=== PATIENT | male | born 1995 | race Caucasian/White ===

== ENCOUNTER 2016-02-25 09:16 | Emergency (ER) | payer OTHER ==
[2016-02-25 09:16] VITALS: BP 148/86; PULSE 111; RESP 17; O2SAT 100
--- NOTE | 2016-02-25 09:53 | ED.REPORT ---
HPI-Altered Mental Status Date of Service Feb 25, 2016 ED Provider: Gino Bridges DO Patient is as 20 year old male who is a resident at [facility] for hx of autism, bipolar d/o and schizophrenia presenting to the ER with altered mental status. Pt arrives via medics in 4 point restraints, received multiple doses of Ketamine and Versed GLOST KILN PLACER for agitation, moaning and grunting. Patient is homeless and has been admitted three times in the last year, at time lengths of 18 days, 38 days, and most recently, 2 months. His hat marker reports that his current behavior is unusual. His medication regimen has been altered over the past year, with increased dosages that have negatively altered the patient's persona. Patient is usually easy going, follows direction, has conversations, and maintains a stable baseline. Recently patient has been more aggressive but not violent, doesn't follow directions, more unpredictable, and has trouble with urination. Patient is now experiencing urinary retention or incontinence, has been hearing voices, and frequently emits a buzzing noise. Per patient's hat marker, pt has not been vomiting. Patient's mother is also psych patient in and out of [place], is homeless, and has recently refused to care for patient. From paperwork in the room the patient's [place] level was up. Nursing Notes Stated Complaint: ALTERED MENTAL STATUS Chief Complaint: Psychiatric Complaint Nursing Notes Reviewed: Yes Allergies: Coded Allergies: orange flavor (Verified Allergy, Severe, 02/25/16) diphenhydramine (Verified Adverse Reaction, Severe, paradoxical effect, 02/25/16) haloperidol (Verified Adverse Reaction, Mild, drooling, 02/25/16) General Time Seen by MD: 09:37 Chief Complaint Not acting right Hx Obtained From: Director Of Pupil Personnel Program Unable to Obtain Hx: Patient condition Arrived By: Ambulance Sudden in Onset?: Yes Onset Occurred: More than a week ago... Symptom Duration: Since onset Progression since Onset: Gradually worsening Past Medical History Past Medical History autism, bipolar, schizophrenia Smoking History Never Smoker Social History Alcohol Use: Denies alcohol use Drug Use: Denies drug use Other Social History: Poor social support Ambulatory Status Independent Review of Systems Unable to Obtain ROS Patient condition Basic Review of Systems ENT: Hearing NL, No pain, No nasal congestion, No pharyngeal pain : No dysuria, No frequency Musculoskeletal: No extremity swelling, No extremity pain, Full range of motion , Joints NL Hematologic: No bleeding, No bruising Allergy / Immune: No allergy Psychiatric: Reports: Change mental status (per hat marker) Physical Exam Initial Vital Signs Vital Signs (First) Date Time Temp Pulse Resp B/P Pulse Ox O2 Delivery O2 Flow Rate FiO2 02/25/16 09:16 37.4 111 17 148/86 100 Room Air Initial VS: Reviewed ENT: Mucous membranes moist Abdomen / GI: Soft, Non-tender, No guarding, No rebound, No distention Extremities: Vascular intact, Neuro intact Skin: Warm, Dry, No cyanosis General/Constitutional: Well appearing, Well developed Head / Eyes: Atraumatic, Normocephalic, PERRL, EOMI Neck: Atraumatic, Supple, Non-tender Respiratory / Chest: Atraumatic, Breath sounds NL, Breath sounds = bilat Cardiovascular: Heart rate NL, Regular rhythm, Heart sounds NL Mental Status: Positive: Responds to verbal stim non-sensical speech following commands moving all 4 extremities Interpretation & Diagnostics Lab Results Interpretation Result Diagram: 02/25/16 0930 02/25/16 0930 Test 02/25/16 09:30 02/25/16 09:31 02/25/16 09:41 02/25/16 13:13 White Blood Count 9.6th/mm3 (3.8-10.1) Red Blood Count 4.56mil/mm3 (4.40-5.80) Hemoglobin 13.5g/dL (13.8-17.2) Hematocrit 41.2% (41.0-50.0) Mean Corpuscular Volume 90.4fL (81-100) Mean Corpuscular Hemoglobin 29.6pg (27.0-35.0) Mean Corpuscular Hemoglobin Concent 32.8% (32.0-37.0) Red Cell Distribution Width 14.2% (12.3-15.4) Platelet Count 290bil/L (150-400) Neutrophils (%) (Auto) 60.5% (40-74) Lymphocytes (%) (Auto) 30.7% (14-46) Monocytes (%) (Auto) 5.9% (4-12) Eosinophils (%) (Auto) 2.6% (0-5) Basophils (%) (Auto) 0.2% (0-3) Sodium Level 139mEq/L (134-144) Potassium Level 4.8mEq/L (3.5-5.2) Chloride Level 100mEq/L (97-108) Carbon Dioxide Level 25mmol/L (18-29) Blood Urea Nitrogen 11mg/dL (6-20) Creatinine 0.73mg/dL (0.76-1.27) Estimat Glomerular Filtration Rate 144mL/min (>59) Glucose Level 110mg/dL (60-99) Calcium Level 9.6mg/dL (8.5-10.1) Magnesium Level 2.3mg/dL (1.6-2.6) Total Bilirubin 0.6mg/dL (0.0-1.2) Aspartate Amino Transf (AST/SGOT) 33U/L (0-50) Alanine Aminotransferase (ALT/SGPT) 41U/L (0-44) Alkaline Phosphatase 92U/L (25-150) Ammonia 30ug/dL (18-53) Total Protein 7.7g/dL (6.4-8.4) Albumin 4.8g/dL (3.4-5.0) Salicylates Level 3.0ug/mL (30-250) Acetaminophen Level 15.0ug/mL Rx (10-25) Alcohol, Quantitative < 10mg/dL (0-10) Hold Purple Top Tube Received (Received) Hold Blue Top Tube Received (Received) Hold Red Top Tube Received (Received) Hold [place] Top Tube Received (Received) Urine Color Yellow (YELLOW) Urine Appearance Clear (CLEAR,HAZY) Urine pH 8.5 (5.0-8.0) Urine Specific [place] 1.020 (1.003-1.035) Urine Protein Negativemg/dL (NEG,TRACE) Urine Glucose (UA) Negativemg/dL (NEGATIVE) Urine Ketones Negativemg/dL (NEGATIVE) Urine Occult Blood Negative (NEGATIVE) Urine Nitrite Negative (NEGATIVE) Urine Bilirubin Negative (NEGATIVE) Urine Urobilinogen Normalmg/dL (NORMAL) Urine Leukocyte Esterase Negative (NEGATIVE) Urine RBC 0-2/hpf (0-2) Urine WBC 0-5/hpf (0-5) Urine Epithelial Cells Few/hpf (NONE-MOD) Urine Crystals None seen (NONE SEEN) Urine Bacteria Few/hpf (NONE-FEW) Urine Hyaline Casts None/lpf (NONE) Urine Granular Casts None seen (NONE SEEN) Urine Waxy Casts None seen (NONE SEEN) Urine Red Blood Cell Casts None seen (NONE SEEN) Urine White Blood Cell Casts None seen (NONE SEEN) Urine Mucus Present (None Seen) Urine Trichomonas None seen (NONE SEEN) Urine Yeast None (NONE SEEN) Urinalysis Comment None Urine Culture Reflexed Not indicated Valproic Acid (Depakene) Level < 3ug/mL (50-125) [place] Level 0.4mEq/L (0.5-1.5) ECG Interpretation ECG Interpretation: 1028 rate 95 sinus rhythm repolarization Time: 11:45 Interpreted by: ED physician X-Ray Chest Interpretation Chest Xray Interpretation: IMPRESSION: Normal AP supine chest. Dictated by: Haroldo Pro M.D. on 02/25/2016 at 11:11 Approved by: Haroldo Pro M.D. on 02/25/2016 at 11:11 View: Portable Interpretation / Wet Read by: Interpret - Radiologist CT Head Interpretation IMPRESSION: There is no acute intracranial abnormality. Dictated by: Haroldo Pro M.D. on 02/25/2016 at 12:30 Study: Head CT no contrast Interpretation / Wet Read by: Interpret - Radiologist, Discussed w radiologist CT Chest Interpretation THERE WAS NO CHEST CT TAKEN, [facility] WILL NOT ALLOW THIS TO BE TAKEN OFF OF THE CHART. Re-Eval/Medical Decision Med Decision/Clinical Course No evidence of hydrocephalus on head CT nor mass effect, stroke, or obvious hemorrhage. Clinically symptomatology does not seem consistent with encephalitis or meningitis and no LP was performed. Other laboratory studies are unremarkable. It seems that for any obvious reversible medical causes this is an identifiable and the patient is deemed stable to return to the care of the psychiatric facility which he came from. Source of Hx: Old records, EMS, Director Of Pupil Personnel Program, Coating Machine Operator Helper Re-Evaluation/Progress #1: Time of Eval: 09:16 Re-Evaluation/Progress Note: Face to face evaluation performed. Patient was brought in with restraints and will remain in restraints at this time. Re-Evaluation/Progress #2: Time of Eval: 10:58 Re-Evaluation/Progress Note: Pt rechecked. Pt's psychiatrist arrived at hospital. Discussed the patient's case with her. Informed pt of diagnosis and plan for treatment. Re-Evaluation/Progress #3: Time of Eval: 12:42 Re-Evaluation/Progress Note: Pt rechecked. Discussed negative head CT and plan for discharge with the patient's hat marker. All questions were addressed. Counseled Regarding: Diagnosis, Lab results, Need for follow-up, When/why to return to ED Patient Discharge & Departure Impression: Primary Impression: Altered mental status Altered mental status type: unspecified Qualified Code: R41.82 - Altered mental status, unspecified Disposition: Home Discharge Condition All VS Reviewed: Yes Condition: Stable Additional Instructions: Thank you for seeking care at emergency room. No identifiable life-threatening cause of these symptoms can be found. Follow- up with psychiatry and your regular doctor as planned. You are cleared to go back to the psychiatric facility. Return to ER as needed for worsening symptoms. Thank you for letting us partake in your care today. Scribe Attestation Portion of this note were transcribed by Claire Hernandez and Deep Dennis. I, Dr. Andrew Morales, personally performed the history, physcial exam, and medical decision- making: I reviewed and confirmed the accuracy for the information in the transcribed note. Signed by: delaney Díaz, 02/22/16 Gino Freeman DO Feb 25, 2016 09:53 DEEP DENNIS Feb 25, 2016 10:11 Claire Hernandez Feb 25, 2016 11:53
[2016-02-25] MEDS ORDERED: 0.9% Sodium Chloride 1,000 ML IV ONE ×2 (09:58→11:55)
[2016-02-25 10:08] LABS: APPEARANCE,URINE CLEAR (CLEAR,HAZY); COLOR,URINE YELLOW (YELLOW); PH,URINE 8.5 (5.0-8.0)
[2016-02-25 10:09] LABS: OCCULT BLOOD,URINE NEGATIVE (NEGATIVE); UROBILINOGEN,URINE NORMAL (NORMAL)
[2016-02-25 10:19] LABS: BASOPHILS % (AUTO) 0.2 % (0-3); EOSINOPHILS % (AUTO) 2.6 % (0-5); MONOCYTES % (AUTO) 5.9 % (4-12); Mean Corpuscular Hemoglobin 29.6 pg (27.0-35.0); Mean Corpuscular Volume 90.4 fL (81-100); NEUTROPHILS % (AUTO) 60.5 % (40-74); Platelet Count 290 bil/L (150-400)
[2016-02-25 10:27] VITALS: BP 129/73; PULSE 96; RESP 18; O2SAT 100
[2016-02-25 10:33] LABS: Magnesium 2.3 mg/dL (1.6-2.6)
[2016-02-25 11:06] LABS: Ammonia 30 ug/dL (18-53)
--- NOTE | 2016-02-25 11:13 | DRSVH ---
PROCEDURE: X-RAY CHEST ONE VIEW, PORTABLE ([id number]) INDICATIONS: Altered Mental Status TECHNIQUE: One view of the chest was acquired. COMPARISON: None. FINDINGS: Surgical changes and devices: classroom monitor leads are seen over the chest. Lungs and pleura: No pleural effusions or pneumothorax. Lungs are clear. Mediastinum: Mediastinal contours appear normal. Heart size is normal. Bones and chest wall: No suspicious bony lesions. Overlying soft tissues appear unremarkable. IMPRESSION: Normal AP supine chest. Dictated by: Haroldo Pro M.D. on 02/25/2016 at 11:11 Approved by: Haroldo Pro M.D. on 02/25/2016 at 11:11
[2016-02-25 12:25] VITALS: BP 123/56; PULSE 89; RESP 15; O2SAT 99
--- NOTE | 2016-02-25 12:32 | DRSVH ---
PROCEDURE: CT BRAIN WITHOUT CONTRAST ([id number]) INDICATIONS: altered mental status TECHNIQUE: Noncontrast 4.5 mm thick angled axial sections acquired from the foramen magnum to the vertex, with c oronal reformats. COMPARISON: None. FINDINGS: Image quality: Excellent. CSF spaces: Basal cisterns are patent. No extra-axial fluid collections. Ventricles are normal in size and shape. Brain: No midline shift. No intracranial masses or hemorrhage. Metcalf-white matter interface is norm al. Skull and face: Calvarium and visualized facial bones are intact, without suspicious lesions. Sinuses: Visualized sinuses show scattered mucosal thickening of mild to moderate amount as well as an air-fluid level in the right maxillary sinus suggesting an acute sinusitis. IMPRESSION: There is no acute intracranial abnormality. Dictated by: Haroldo Pro M.D. on 02/25/2016 at 12:30 Approved by: Haroldo Pro M.D. on 02/25/2016 at 12:30
[2016-02-25 13:47] LABS: Valproic Acid < 3 ug/mL (50-125)
[2016-02-25 14:02] VITALS: BP 140/73; PULSE 96; RESP 17; O2SAT 100
[2016-02-25 14:48] VITALS: BP 129/65; PULSE 94; RESP 14; O2SAT 96
[2016-02-26] MEDS ORDERED: TEMA15CA3 PO (21:55)
[2016-02-26] MEDS ORDERED: GUAN1TAB PO (21:55)
[2016-02-26] MEDS ORDERED: ARIP5TAB5 PO (21:55)
[2016-02-26] MEDS ORDERED: ACET325T51 PO (21:55)
[2016-02-26] MEDS ORDERED: KLO1T PO (21:55)
[2016-02-26] MEDS ORDERED: ZIPR40CA2 PO (21:55)
[2016-02-26] MEDS ORDERED: MAGN400O4 PO (21:55)
[2016-02-26] MEDS ORDERED: ZIPR60CA2 PO (21:55)
[2016-02-26] MEDS ORDERED: LITHIUM PO ×2 (21:55)
== END 2016-02-25 14:45 | disposition home or self-care (01) ==
LOC: SED 09:30
DX: R41.82 Altered mental status, unspecified (principal); Z88.8 Allergy status to other drugs, medicaments and biological substances
CPT/HCPCS: 36415; 51702; 70450; 71010; 80053; 80164; 80178; 81000; 82140; 83735; 85025; 93005; 96361; 96374; 99285; G0480; J2250; J7030

== ENCOUNTER 2016-02-26 13:19 | Inpatient (IN) | payer OTHER, MEDICAID ==
[~2016-02-26] VITALS: Ht 180.3 cm; Wt 81.1 kg
[2016-02-26 13:30] VITALS: BP 134/78; PULSE 98; RESP 20; O2SAT 100
--- NOTE | 2016-02-26 16:41 | ED.REPORT ---
HPI-General Illness Date of Service Feb 26, 2016 ED Provider: Natali Lozano MD A 20 year old male with a history of autism, bipolar disorder, and schizophrenia presents to the ED via EMS from [facility] with hypertension and behavioral status changes onset today. This morning his caretakers documented in the patient an episode of rigid, violent shaking with a BP of 200/ 120 and a heart rate of 120. His vital signs had returned to normal when the medics arrived. His caretakers deny fever. The patient's Geodon dosage was recently increased. He was in the ED yesterday for altered mental status and was discharged after a full work-up. Nursing Notes Stated Complaint: HIGH BLOOD PRESSURE Chief Complaint: General Complaint Nursing Notes Reviewed: Yes Allergies: Coded Allergies: orange flavor (Verified Allergy, Severe, 02/26/16) diphenhydramine (Verified Adverse Reaction, Severe, paradoxical effect, 02/26/16) haloperidol (Verified Adverse Reaction, Mild, drooling, 02/26/16) Scheduled ([[place] Oral solu]) 300 MG PO DAILY ([[place] oral ivon]) 600 MG PO HS Aripiprazole (Abilify) 5 Mg Tablet 7.5 MG PO DAILY Clonazepam (Clonazepam) 1 Mg Tablet 1 MG PO TID Guanfacine (Guanfacine) 1 Mg Tablet 1 MG PO BID Ziprasidone (Geodon) 40 Mg Capsule 40 MG PO DAILY Ziprasidone (Geodon) 60 Mg Capsule 60 MG PO HS Scheduled PRN Acetaminophen (Acetaminophen) 325 Mg Tablet 650 MG PO Q4H PRN PRN For Fever Magnesium Hydroxide (Milk of Magnesia) 400 Mg/5 Ml Oral.susp 400 MG PO PRN For Dyspepsia or Heartburn Temazepam (Restoril) 15 Mg Capsule 15 MG PO HS PRN PRN For Insomnia General Time Seen by MD: 16:38 Chief Complaint Other (Hypertension) Hx Obtained From: Courtroom Clerk Unable to Obtain Hx: Mental status Arrived By: Ambulance Sudden in Onset?: Yes Onset Occurred: 9 - 12 hours ago Symptom Duration: Intermittent Associated with: Denies: Fever Pertinent Negative: Relieved by nothing Context Related History: Reports Psychiatric history, Reports Recent medication Recent Healthcare: Recent doctor visit Similar Sx Previous: No Past Medical History Past Medical History Autism Bipolar disorder Schizophrenia Past Surgical History None reported Smoking History Never Smoker Social History Alcohol Use: Denies alcohol use Drug Use: Denies drug use Other Social History: Poor social support Ambulatory Status Independent Review of Systems Unable to Obtain ROS Patient condition, Mental status Physical Exam Vital Signs Vital Signs Date Time Temp Pulse Resp B/P Pulse Ox O2 Delivery O2 Flow Rate FiO2 02/26/16 18:59 37.8 02/26/16 18:53 110 16 131/74 98 Room Air 02/26/16 16:51 56 18 154/89 97 Room Air 02/26/16 13:30 36.5 98 20 134/78 100 Room Air Initial VS: Reviewed Head / Eyes: Atraumatic, Normocephalic, PERRL ENT: Mucous membranes moist, Conjunctiva normal, No scleral icterus Neck: Supple, Non-tender, Full range of motion Respiratory: Breath sounds normal, Clear to auscultation, No respiratory distress Cardiovascular: Regular rate & rhythm, Heart sounds normal Abdomen / GI: Soft Extremities: No swelling Skin: Warm, Dry, No cyanosis General/Constitutional: Awake On exam patient is sitting on the toilet, facing the wall He is nonverbal and noncommunicative Poor eye contact Movement Abnormality: Positive: Tremor (Bilateral hands) NEUROLOGIC: Nonverbal and noncommunicative Interpretation & Diagnostics Lab Results Interpretation Test 02/26/16 14:00 Hold Purple Top Tube Received (Received) Hold Blue Top Tube Received (Received) Total Creatine Kinase 398U/L (21-232) Hold Red Top Tube Received (Received) Hold [place] Top Tube Received (Received) ECG Interpretation ECG Interpretation: Sinus tachycardia rate 108 Early repol pattern Similar to 02/25/16 Time: 19:26 Interpreted by: ED physician Re-Eval/Medical Decision Med Decision/Clinical Course Neuroleptic Malignant Syndrome Diagnostic Criteria: Exposure to dopamine antagonist, or dopamine agonist withdrawal, within past 72 hours - 20 PTS (Geodon) Hyperthermia - NO PTS Rigidity - 17 PTS (Tremor) Mental status alteration - 13 PTS Creatine kinase elevation, at least 4x upper limit of normal - 10 PTS (398) Sympathetic nervous system lability - 10 PTS (Blood pressure elevation to 154/89 , blood pressure fluctuation from 129/65 yesterday, and urinary incontinence yesterday) Hypermetabolism - NO PTS Negative work-up for infectious, toxic, metabolic, or neurological causes - 7 PTS Total: 77/100 At this time, best diagnosis is developing neuroleptic malignant syndrome due to recent increases in Geodon recommendations from UP to DATE are admission, supportive care, witholding of neuroleptics Source of Hx: Old records Consultation : Referral / Consult Name: Deejay Pruitt MD Call Returned at: 19:10 Land Management Supervisor: Agrees with eval, Agrees with plan, Accepts admit Counseled Regarding: Diagnosis, Lab results, Need for admission Discharge & Departure Primary Impression: Neuroleptic malignant syndrome Disposition: ADMITTED TO HOSPITAL Discharge Condition All VS Reviewed: Yes Condition: Stable Referrals: Sulma Ambriz MD (PCP) Cristiibe Attestation Portions of this note were transcribed by Estrellita Melo. I, Dr. Lozano, personally performed the history, physical exam, and medical decision-making; I reviewed and confirmed the accuracy of the information in the transcribed note. Signed by: Amador Marie, 02/26/2016, 20:17 copies to: Sulma Ambriz MD, Shawna L MD Feb 26, 2016 16:41 ESTRELLITA MELO Feb 26, 2016 17:08
[2016-02-26 16:51] VITALS: BP 154/89; PULSE 56; RESP 18; O2SAT 97
[2016-02-26 18:53] VITALS: BP 131/74; PULSE 110; RESP 16; O2SAT 98
[2016-02-26] MEDS ORDERED: Polyethylene Glycol (PEG) 17 Gm Powder PO PRN (19:30)
[2016-02-26] MEDS ORDERED: Alum-Mag Hydrox-Simeth 30 mL Suspension PO PRN (19:30)
[2016-02-26] MEDS ORDERED: Ondansetron 2 mg/mL 2 mL Inj IVPUSH PRN (19:30)
--- NOTE | 2016-02-26 19:33 | PCM.HPMED ---
Subjective Date of Service Feb 26, 2016 Primary Provider: Admitting Physician: Primary Care Physician: Sulma Ambriz MD Attending Physician: Chief Complaint: Concern for neuroleptic malignant syndrome History of Present Illness: A 20 year old male with a history of autism, bipolar disorder, and schizophrenia presents to the ED via EMS from [facility] with hypertension and behavioral status changes onset today. This morning his caretakers documented an episode of violent shaking with a BP of 200/120 and a heart rate of 120. His vital signs had returned to normal when the medics arrived. His caretakers deny fever. The patient's Geodon dosage was recently increased. He was in the ED yesterday for altered mental status and was discharged after a full work-up. Entire history and physical are what could be gleaned from the chart patient gives no information. Review of Systems: Unobtainable patient nonverbal Allergies Coded Allergies: orange flavor (Verified Allergy, Severe, 02/26/16) diphenhydramine (Verified Adverse Reaction, Severe, paradoxical effect, 02/26/16) haloperidol (Verified Adverse Reaction, Mild, drooling, 02/26/16) Home Medications Acetaminophen 325 650 every 4 when necessary Abilify 7.5 mg daily Clonazepam 1 mg 3 times a day Guanfacine 1mg twice a day Milk of magnesia when necessary Temazepam 15 makes at bedtime when necessary Geodon 40-60 mg at bedtime [place] 300 mg daily 600 mg at bedtime PMH Autism Bipolar disorder Schizophrenia Past Surgical History None reported Smoking History Never Smoker Social History Alcohol Use: Denies alcohol use Drug Use: Denies drug use Other Social History: Poor social support Ambulatory Status Independent Family history unknown patient unable to provide Social History Smoking Status: Never Smoker Exam Vital Signs Vital Sign - Last Date Time Temp Pulse Resp B/P Pulse Ox O2 Delivery O2 Flow Rate FiO2 02/26/16 18:59 37.8 02/26/16 18:53 110 16 131/74 98 Room Air Exam Gen.-Poorly verbal young man lying in bed in restraints. Eyes- open conjunctiva clear, pupils equal nonicteric, pupils dilated Mouth- oral mucosa moist, no exudate ENT- ears normal, nose normal Neck- supple/trach midline CVS- RRR no murmur or gallop Lungs CTA GI- NABS/NT soft Musc- moving 4 no obvious deformity Neuro- cranial nerves II through XII intact to gross examination, nonfocal Skin- warm and moist/diaphoretic, no rashes/lesions/wounds noted Psych-he looks a bit disheveled and frightened he is unable to say anymore than "sound" is what I understood, and nod his head is not clear he understands anything I am saying Lab and Diagnostics Labs CBC WBC 9.6, Hg 13.5, PLT 290 02/24, LFTs WNL, ammonia 30, CK 398, UA clear and a 139, K4.8, CL 100, CO2 25, P1 11, CR 0.73, glucose 110, calcium 9.6 02/24 X-Rays, CTs and MRIs CXR concurrently reviewed by myself from 02/[address] head 02/24 concurrently reviewed by myself There is no acute intracranial abnormality. Asymmetry of the ventricular system. The right is smaller than the lateral ventricle than the left in the region of the body and frontal horn. However nicholson -white matter interface is considered normal and no mass effect or edema is seen. So no abnormality is appreciated that would cause the right side to be smaller. On the left side which is somewhat larger one can argue that the body of the caudate nucleus is atrophic at the mid lateral ventricular level. This would be an old finding and nothing acute. No other cause for the enlargement of the left lateral ventricle is seen. Therefore I did not see any evidence for any acute disease intracranially and suspect that the ventricular asymmetry is within normal limits. old CT scans to compare would be useful. Assessment & Plan 20-year-old male being admitted for observation for possible neuroleptic malignant syndrome NMS- observe for muscle rigidity, autonomic instability/labile blood pressures, mental status changes. We will stop his potential inciting agents the atypical antipsychotics Geodon and Abilify. CK is mildly elevated we will track that. He is also on guanfacine which is a selective output to inhibitor which may prompt sedation and also lower blood pressure for now I am continuing that. Agitation-will be managed with benzodiazepines for now until psychiatric consult and assistance. This patient is obviously complex and had behaviors resistant to single antipsychotics and was apparently on 2 at this time. Will he will require also restraints and perhaps even violent restraints but he has settled down for now. Elevated CK- possibly secondary to NMS follow Abnormality of the right ventricle on CT-probably an old finding Prophylaxis- DVT/GI not indicated Disposition- from a psych facility and is a full code We will discontinue this patient's Geodon, in the morning perhaps a psychiatry what to change the patient to, if his blood pressure goes up and he is CK starts to spike we would go ahead and give dantrolene 1- 2.5 mg/kg, and perhaps bromocriptine 2.5 mg every 6-8 hours up to 40 mg a day. Both of these if started should probably be continued for 10 days followed by a slow taper. At this point in time I see no evidence only to do this as all the symptoms of rhinitis are mild at this point in time and the evidence is sketchy at best for these therapies. Supportive care is the primary therapy for NMS. Deejay Pruitt MD Feb 26, 2016 19:33
[2016-02-26 20:31] VITALS: BP 142/83; PULSE 98; RESP 16; O2SAT 98
[2016-02-26 21:00] VITALS: BP 134/83; PULSE 98; RESP 20; O2SAT 98
[2016-02-26] MEDS ORDERED: MAGN400O4 PO (21:55)
[2016-02-26] MEDS ORDERED: KLO1T PO (21:55)
[2016-02-26] MEDS ORDERED: ZIPR60CA2 PO (21:55)
[2016-02-26] MEDS ORDERED: ARIP5TAB5 PO (21:55)
[2016-02-26] MEDS ORDERED: ACET325T51 PO (21:55)
[2016-02-26] MEDS ORDERED: GUAN1TAB PO (21:55)
[2016-02-26] MEDS ORDERED: LITHIUM PO ×2 (21:55)
[2016-02-26] MEDS ORDERED: TEMA15CA3 PO (21:55)
[2016-02-26] MEDS ORDERED: ZIPR40CA2 PO (21:55)
[2016-02-26 22:46] VITALS: PULSE 123
[2016-02-27] VITALS (8 sets, daily range): BP systolic 131–150; BP diastolic 56–86; PULSE 90–115; RESP 18–22; O2SAT 96–99
--- NOTE | 2016-02-27 00:58 | NUR ---
Admit Pt admitted to [facility] room 3011 at 2039. Pt came with direct service worker and sitter from ED. Able to walk SBA for direction, steady on feet but unable to direct and control movements. Pt wanting to get out of room, hitting computer and other objects. paged to start restraints. Telephone order obtained for soft restraints at 2055. MD came to see pt and evaluate, home meds given with chocolate pudding along with 2mg IV Lorazepam. Pt also has 1:1 sitter. Pt only able to answer simple questions like name, birthday and only follows simple commands such as lifting bottom and deep breathing. Pt has temp at 38.2, MD aware. On tele, ST 100s-120s with activity/agitation. Continue close monitoring.
--- NOTE | 2016-02-27 06:20 | NUR ---
urine retention Bladder scanned pt for 450 ml this morning. Attempted to help pt void standing and try the toilet without luck. paged and straight cath order obtained. Straight catheter inserted and 700 ml of david urine drained.
[2016-02-27 09:20] LABS: BASOPHILS % (AUTO) 0.2 % (0-3); EOSINOPHILS % (AUTO) 3.6 % (0-5); Mean Corpuscular Hemoglobin 29.4 pg (27.0-35.0); Mean Corpuscular Volume 88.6 fL (81-100); NEUTROPHILS % (AUTO) 68.7 % (40-74); Platelet Count 307 bil/L (150-400)
[2016-02-27 09:30] LABS: Magnesium 2.2 mg/dL (1.6-2.6); Phosphorus 3.9 mg/dL (2.5-4.9)
[2016-02-27] MEDS: 0.9% Sodium Chloride 1,000 ML IV SCH ×2 (10:49→21:39)
--- NOTE | 2016-02-27 14:17 | PCM.PNMED ---
Subjective Date of Service Feb 27, 2016 Subjective pt was not communicative, rigid, Exam Vital Signs Vital Sign - Last Date Time Temp Pulse Resp B/P Pulse Ox O2 Delivery O2 Flow Rate FiO2 02/27/16 10:38 37.2 100 22 150/56 96 Room Air Intake and Output 02/26/16 02/26/16 02/27/16 Cumulative From/Thru 15:00 23:00 07:00 02/26/16 21:45 - 02/27/16 06:34 Intake Total 513 ml 513 ml Output Total 700 ml 700 ml Balance -187 ml -187 ml Intake Oral 513 ml 513 ml Output Urine Total 700 ml 700 ml # Bowel Movements 0 0 Exam young male, intermittent moving, on restraints motor: rigid on passive ROM, no jerking no JVD, dry MM, no LAD RRR, nl s1, s2 no mrg CTAB, no w,c S,ND,NT,normoactive BS+ warm, no edema, pulses 2/2 IVs and Medications Medications Reviewed: Medications were reviewed in detail Lab and Diagnostics Result Diagram: 02/27/16 0550 02/27/16 0550 X-Rays, CTs and MRIs CXR concurrently reviewed by myself from 02/[address] head 02/24 concurrently reviewed by myself There is no acute intracranial abnormality. Asymmetry of the ventricular system. The right is smaller than the lateral ventricle than the left in the region of the body and frontal horn. However nicholson -white matter interface is considered normal and no mass effect or edema is seen. So no abnormality is appreciated that would cause the right side to be smaller. On the left side which is somewhat larger one can argue that the body of the caudate nucleus is atrophic at the mid lateral ventricular level. This would be an old finding and nothing acute. No other cause for the enlargement of the left lateral ventricle is seen. Therefore I did not see any evidence for any acute disease intracranially and suspect that the ventricular asymmetry is within normal limits. old CT scans to compare would be useful. Assessment & Plan 20-year-old male w/ autism, bipolar disorder, and schizophrenia presents to the ED via EMS from [facility] with hypertension and behavioral status changes onset today. #Fever, HTN, behavioral changes, POA, likely NMS due to increased dose of antipsychotics, CK trending up, still rigid. cannot exclude T[employer] infection entirely, although behaves as typical NMS -started bromocriptine 2.5mg tid, ativan 1-2mg prn -started IVF 100cc/hr, daily CK, Cr -frequent neurocheck, seizure precaution, -if fever continues, remain altered, consider LP. cover for meningitis/ encephalitis #Autism, bipolar disorder, and schizophrenia -stopped all of psychiatric meds, appreciate recommendation for optimizing regimen upon d/c dvt ppx: HSQ diet: NPO for now, advance when appropriate given MS. dispo: Likely to 3 more days, then inpatient psychiatry back to [facility] , Of note, reportedly pt is homeless, appreciate SW input. Full Code Time spent 35min Angelo Neumann MD Feb 27, 2016 12:49
--- NOTE | 2016-02-27 15:38 | NUR ---
Social Work-initial assessment: Data:pt is a 20 y/o male who was admitted on 02/26/16 for neuroleptic malignant syndrome per H&P. Pt's insurance is [employer] and PCP is Sulma Ambriz Md. EMR Reviewed. SW looked in pt's chart, court order in the chart. Pt is involuntarily detained on a 90 day order who has been at [facility]. SIMONA placed a call to [facility] [phone] and spoke with Cornice Maker Fariha. Fariha states pt has been residing with them since the beginning of December and is on a waitlist for [facility]. Fariha states she believes pt has DD, but is not connected with services. Fariha states sometimes pt is able to have a conversation and other times he is not able to speak and it sounds like word salad. Fariha states she will have funds development director call SW back. SIMONA received a call back from Fariha who states that director traffic and planning Ngoc will be over to see pt and make will make determination of pt's ability to return to their facility. SIMONA attempted to contact Liseth Ventura, will attempt tomorrow. SW to follow up with [facility] after they come and see pt. SW will continue to follow. Assessment:Pt who comes from [facility]. Plan:Pt to likely discharge back to [facility] when medically stable. Pt is an involuntary pt. SIMONA will continue to follow. ALLISON Vivas
--- NOTE | 2016-02-27 16:13 | CONS ---
[address] [address] CONSULTATION REPORT PATIENT: JAYLON DE LEÓN : 1995 MR#: [id number] ADMIT: 02/26/2016 JOB ID: [id number] DATE OF SERVICE: 02/27/2016 PSYCHIATRIC CONSULTATION: The patient is a 20-year-old, white male. He is reported to be homeless and living in a car with his mother. His mother was recently detained herself to [facility]. Client has a diagnosis of both autism and psychosis. He has recently had three stays at [facility]. REASON FOR CONSULTATION: Client transferred from [facility] to [facility] for increased hypertension, agitation and mental status changes. HISTORY OF PRESENT ILLNESS: I was asked to consult for the patient for evaluation and treatment of neuroleptic malignant syndrome. I met with the patient and one of his staff members from [facility] for a 60 minute evaluation. I also reviewed course and records kept by both [facility] and by the [facility] in [facility]. Client's main issue at this time is neuroleptic malignant syndrome with rigidity, autonomic instability, mental status changes and markedly increased creatine kinase. The condition is acute and appears to have been developing over the past week. At present, it is of a moderate intensity manifesting with the above neuroleptic malignant syndrome symptoms. Prior to transfer from [facility], he was also incontinent of urine and feces and was uncharacteristically agitated breaking a TV, not being redirectable and threatening staff. All the above symptoms appeared to have been made worse by addition of certain medications. In chart review, client was on: 1. Abilify. 2. Recent increase of Geodon from 40 in the morning and 60 mg at night. 3. Trial of Adderall. 4. Tenex. 5. Trial of Depakote. 6. Trial of lithium. 7. Trial of Ativan. 8. Trial of Restoril. 9. Geodon and Haldol IM p.r.n.'s for agitation. Staff member, Tania, reported the client does quite well when in a structured environment. She states at baseline he is easily redirectable, shows no signs of aggression and loves his Nintendo. He is currently presenting with extreme cognitive deficits and severely impaired judgment, coping and reality testing. Client was unable to participate in symptom review of systems for mental illnesses or physical illnesses. PAST MEDICAL HISTORY: MEDICATIONS: 1. [place] 300 q. a.m. and 600 h.s. 2. Klonopin 1 t.i.d. 3. Geodon 40 in the morning, 60 at night. 4. Abilify 7.5 daily. 5. There are also reports that client is getting regular doses of Ativan, Risperdal and Depakote and IM Geodon. ALLERGIES: DIPHENHYDRAMINE, HALDOL. ILLNESSES: I could not identify any specific illnesses from the chart or review. FAMILY MEDICAL HISTORY: Unable to obtain at this time. PAST PSYCHIATRIC HISTORY: Client's been diagnosed with autism, bipolar disorder and schizophrenia. I was unable to verify these diagnoses. PSYCHOSOCIAL HISTORY: Client unable to participate and minimal available from the chart. Mother reportedly detained for mental illness at [facility]. History of trauma or childhood history is currently unavailable. Drug and alcohol unknown. LETHALITY: Client, prior to this recent admission, had not previously been aggressive. No evidence of self-harm or self-mutilation over this recent admission at [facility]. He broke a TV and would respond in a violent manner while unprovoked. PHYSICAL EXAMINATION: Reviewed from our ED and essentially normal. Vital signs: 150/56, pulse 100, respirations 22, afebrile. MENTAL STATUS EXAMINATION: Client non verbal, noncommunicative, tending to stare blankly ahead, barely blinking his eyes. At one point, I was able to get him to give a thumbs up as he was watching the Nuzzel but not playing it. His behavior is lethargic and withdrawn. His attitude aloof and detached. Speech nonverbal. Mood unknown. Affect flat, restricted. Thought process: Extremely concrete, poverty of thought. Thought content: Poverty of thought. Severe impairment in orientation, memory and attention. Marked impairment in insight judgment. Reality testing unable to assess. Competence to handle current stressors is currently being overwhelmed. PHYSICAL EXAMINATION: Client has cogwheel rigidity and marked tension in both upper and lower extremities. LABORATORIES: CT normal. CBC: WBC at 12. Liver electrolytes, thyroid normal except for creatine kinase. It is greater than 600. Cliff [place] was 0.4. IMPRESSION: The patient is a 20-year-old white male, who appears to have significant developmental delay. He is a poor historian and it was very difficult to pinpoint what might be going on for the patient at this time. He certainly has all the features that qualify for a diagnosis of neuroleptic malignant syndrome including rigidity, autonomic instability, mental status changes, marked increase in creatine kinase and recent aggressive outbursts. It appears the [facility] staff was attempting to differentiate whether the client had autism or psychosis. It appears that the combination of multiple neuroleptics, Adderall and lithium provoked a neuroleptic malignant syndrome. Client is reportedly homeless living out of a car with his mother who was recently detained herself to [place]. DIAGNOSIS: AXIS I 1. Psychosis unspecified. 2. Suspect autism spectrum disorder. 3. Rule out bipolar mood disorder. 4. Rule out schizophrenia. 5. Rule out iatrogenic induced psychosis. AXIS II Defer. AXIS III Neuroleptics malignant syndrome. AXIS IV Severe. AXIS V Current global assessment of functioning equal to 15. PLAN: Recommend client be given a medication holiday and would refrain from neuroleptics, lithium or mood stabilizers, but would try to treat any aggressive acting out with Ativan for agitation. Would attempt to engage client in scheduled activities such as sorting or bringing familiar objects from home to the hospital. It would be helpful to obtain more history in terms of previous snf functioning or previous medication trials. Will have the office staff attempt to increase records. Could consider using bromocriptine if client's autonomic instability and rigidity do not improve with supportive care. Thank you for a very interesting consult. I will follow along with you.
[2016-02-27] MEDS: Heparin 5,000 Unit/mL Inj SUBQ SCH ×2 (17:11→23:57)
--- NOTE | 2016-02-27 18:12 | NUR ---
Behaviors Pt has been quite most of the day, with two visitors from the facility pt was previously which appeared to put a smile on pt's face. Ngoc ([facility] LINDSA[facility]) gave infor on interests and likes for pt, and brought in word search and some snacks pt likes. Pt has yet to void, with the exception of some small damp areas in brief, pt bladder scanned, 236ml. Per care givers pt was prompted to void hourly, as it isn't part of pt's thought process. At around 1800 pt started getting agitated and wanting out of bed, pt is not redirectable. Pt is in wrist restraints and all four sides of bed are up for pt safety. Pt continues to try and get out of bed, gave pt Ativan 2 mg, pt is resting quietly in bed with lights low for minimal stimulus. Per care givers, this is not pt's baseline, pt was talking in full sentences and able to participate. Bladder scanned, 501mls. Addendum: 02/27/16 at 1833 by [facility] LOO RN Haylie TORRES for either in/out cath or montes catheter, pt has same issue last night. New order for In/out catheterization for bladder scan >300mls.
[2016-02-28] VITALS (10 sets, daily range): BP systolic 87–187; BP diastolic 57–96; PULSE 62–140; RESP 18–28; O2SAT 97–100
--- NOTE | 2016-02-28 04:45 | NUR ---
Behavior / Bladder Patient primarily nonverbal, uses hand gestures and head motions to communicate, e.g. nodding head for heart auscultation and giving middle fingers for asking whether pt would like to use urinal. Pt verbalized incoherent sentences at HS, unable to understand d/t mumbling. HS PO medications given in vanilla pudding, pt pocketed in cheek but eventually swallowed. Pt significantly agitated and attempting to get out of bed, reoriented to situation and encouraged to stay in bed. At HS, bladder scan of 750mls in bladder; patient encouraged to use urinal before this RN would initiate PRN straight cath. Male sitter at bedside assisted pt to use urinal while this RN stepped outside room, pt spontaneously voided 600mls. During 0 medications, pt educated to heparin injection and procedures explained; pt compliant and relaxed, stated "Okay"; pt asked "I did perfect?" after injection. No apparent rest this shift, pt shifting and turning in bed with intermittent attempts to get out of bed. 2mg Ativan IVP administered x1. Ongoing shakiness, tremors, and sweating; pt remains afebrile throughout shift. VSS. Addendum: 02/28/16 at 0521 by DAISY RANDHAWA RN Additional 2mg IVP Ativan administered this AM d/t persistent attempts to get out of bed. Pt bladder scanned at 0515; approx 200mls in bladder.
[2016-02-28 06:41] LABS: BASOPHILS % (AUTO) 0.1 % (0-3); EOSINOPHILS % (AUTO) 6.8 % (0-5); MONOCYTES % (AUTO) 6.2 % (4-12); Mean Corpuscular Hemoglobin 29.4 pg (27.0-35.0); Mean Corpuscular Volume 88.2 fL (81-100); NEUTROPHILS % (AUTO) 62.8 % (40-74); Platelet Count 257 bil/L (150-400)
[2016-02-28 06:56] LABS: Phosphorus 3.7 mg/dL (2.5-4.9)
[2016-02-28] MEDS: Heparin 5,000 Unit/mL Inj SUBQ SCH ×2 (09:00→16:15)
[2016-02-28] MEDS ORDERED: DANTROLENE IV ONE (09:05)
[2016-02-28] MEDS ORDERED: WATER FOR INJECTION IV ONE (09:05)
[2016-02-28] MEDS: 0.9% Sodium Chloride 1,000 ML IV SCH ×2 (09:07→19:07)
[2016-02-28] MEDS ORDERED: Acetaminophen IV 1,000 MG in IV Premix 1 EACH IV PRN ×3 (10:10→11:40)
--- NOTE | 2016-02-28 13:39 | NUR ---
behavior Somnolent during the first part of the shift. Approx 0900, pt diaphoretic, tremulous, and difficult to rouse-rouses with sternal rub. Wire Spiral Binder and PCC/CCU charge called for support. Tele reports HR in the 130-140's, initially notably hypotensive in the 80s, then found to be hypertensive in the 180's. Pt would not allow this RN to evaluate pupils (turning his head away or squeezing eyes shut). MD notified of behavior. Will squeeze hands, has been raising one or both legs, and qrimacing. Not safe to take PO at this time. External stimuli decreased to minimum. This RN and MD at bedside, soft wrist restraints d/c'd, sitter continues. Request for IV APAP for grimacing and mild fever. IV APAP, and IV Ativan administered, intermittently pt will grab a wrist or hand or arm of staff and hold on, pt starting to open his eyes around 10:30 and look around. Attempted to entice pt with Funions, Mt Dew, or video games-per AF notes these are some of his favorite things. Becomes frustrated with video game console, hitting the controllers-removed from his reach. Pt will not urinate with female staff, able to urinate with male RN assistance. Decreased agitation and restlessness after urinating and IV APAP & Ativan.
--- NOTE | 2016-02-28 14:28 | NUR ---
report given to Amina, transferring to 2011
--- NOTE | 2016-02-28 14:43 | PCM.PNPSY ---
Subjective Date of Service Feb 28, 2016 Subjective I spent 15 minutes both reviewing his treatment plan and assessing the patient. Tyler remains essentially nonverbal but was able to respond to some of my more concrete questions. He denied pain or discomfort. He acknowledged by signing thumbs up that he enjoyed playing the Mapluck machine. The Staff reports that he has cooperative and they have been able to work him out of soft restraints. He has been drinking and is following staff directions Patient was not able to identify why he was here or the nature of his treatments. He did not appear to be responding to internal stimuli. He had significant tension throughout his body and was posturing in all odd positions throughout the interview. Current Medications Current Medications Acetaminophen/ Premix 100 ml @ 400 mls/hr BID PRN IV Last administered on 02/27 11:52; Admin Dose 400 MLS/HR; Start 02/28/16 at 11:40; Stop 02/29/16 at 11 :41 Bromocriptine Mesylate 2.5 mg ONCE ONCE PO Last administered on 02/27/16 18:45 ; Admin Dose 2.5 MG; Start 02/27/16 at 17:10; Stop 02/27/16 at 17:20; Status DC Bromocriptine Mesylate 2.5 mg 2.5 mg TID PO Last administered on 02/27/16 14:46 ; Admin Dose 2.5 MG; Start 02/27/16 at 10:00 Bromocriptine Mesylate 5 mg 5 mg ONCE ONCE PO Last administered on 02/27/16 21 :40; Admin Dose 5 MG; Start 02/27/16 at 18:50; Stop 02/27/16 at 18:51; Status DC Clonazepam 1 mg TID PO Last administered on 02/26/16 23:07; Admin Dose 1 MG; Start 02/26/16 at 22:15; Stop 02/27/16 at 10:01; Status DC Guanfacine HCl 1 mg BID PO Last administered on 02/26/16 23:07; Admin Dose 1 MG ; Start 02/26/16 at 22:15; Stop 02/27/16 at 10:01; Status DC Heparin Sodium (Porcine) 5,000 unit Q8 SUBQ Last administered on 02/27/16 23:57 ; Admin Dose 5,000 UNIT; Start 02/27/16 at 16:30 Lorazepam 1-2mg Q2 PRN IVPUSH Last administered on 02/28/16 11:28; Admin Dose 2 MG; Start 02/26/16 at 20:55 Lorazepam 2 mg ONCE ONCE IVPUSH Last administered on 02/26/16 22:02; Admin Dose 2 MG; Start 02/26/16 at 20:55; Stop 02/26/16 at 21:28; Status DC Sodium Chloride 1,000 ml @ 100 mls/hr Q10H IV Last administered on 02/28/16 09 :07; Admin Dose 100 MLS/HR; Start 02/27/16 at 10:05 Mental Status Exam Vital Signs Vital Signs Date Time Temp Pulse Resp B/P Pulse Ox O2 Delivery O2 Flow Rate FiO2 02/28/16 14:18 36.8 97 22 137/83 100 Room Air 02/28/16 09:18 37.5 107 24 187/76 100 Room Air 02/28/16 09:14 37.4 120 23 185/64 100 Room Air 02/28/16 09:02 36.3 140 28 87/57 100 Room Air 02/28/16 08:00 62 Appearance: Disheveled Attitude: Other (disorganized confused) Behavior: Stereotypic movements, Distractible Affect: Restricted, Blunted, Flat Mood: Other (patient unable to relate) Thought Process/Associations: Other (poverty of thought) Speech Production: Muter Speech Rate: Lags/Latency Speech Articulation: Slurred Consciousness: Other (agitated restless) Orientation: Unable to assess Estimate Intellectual Function: Below Average Basis for IQ estimate: Other (Specify) (interview with previous staff and caregivers) Insight: None Judgement: Poor Result Diagram: 02/28/16 0550 02/28/16 0550 Mental Health Plan The patient is a 20-year-old white male, who appears to have significant developmental delay. He is a poor historian and it was very difficult to pinpoint what might be going on for the patient at this time. He certainly has all the features that qualify for a diagnosis of neuroleptic malignant syndrome including rigidity, autonomic instability, mental status changes, marked increase in creatine kinase and recent aggressive outbursts. It appears the [facility] staff was attempting to differentiate whether the client had autism or psychosis. It appears that the combination of multiple neuroleptics, Adderall and lithium provoked a neuroleptic malignant syndrome. Client is reportedly homeless living out of a car with his mother who was recently detained herself to [place]. Client seems proximally 20% improved in ability to interact and level of consciousness. He appears to be responding to the current medical treatment despite Relative high levels of blood pressure, pulse and muscle rigidity [place] AXIS I 1. Psychosis unspecified. 2. Suspect autism spectrum disorder. 3. Rule out bipolar mood disorder. 4. Rule out schizophrenia. 5. Rule out iatrogenic induced psychosis. AXIS II Defer. AXIS III Neuroleptics malignant syndrome. AXIS IV Severe. AXIS V Current global assessment of functioning equal to 25 Medications Treatments Patient is being provided with a high degree of safety through the structure and active adult engagement. We will focus on developing improved coping skills and identifying stressors that may have led to current episode. We will attempt to: Provide safety through structure and active adult engagement (nursing staff and sitter's) Provide low-stimulation environment Obtain collateral data to assist in treatment planning Assess degree of lability of affect and impulse control Establish a consistent sleep pattern Provide a Medication regimen effective in stabilization of mood and/or thought process Tolerates medication without side effects Evaluate iatrogenic drug use as an etiology Patient psychiatric medications are currently being held except for Ativan. John Hsu MD Feb 28, 2016 14:43
--- NOTE | 2016-02-28 14:50 | NUR ---
Transfer to room [address] [facility] RN. Pt arrived to room 2010 via bed. Pt unable to respond to questions, aphasic at this time. Unable to hold eye contact. NS at 100cc/hr. pt resting in bed at this time with sitter at bedside. Ongoing care.
--- NOTE | 2016-02-28 15:11 | NUR ---
Social Work-continued d/c planning: Data:EMR reviewed. Pt is on day 2 of hospitalization for neuroleptic malignant per H&P. Pt is several days out from discharge. Pt moved to second floor, SW called 2nd floor SW and provided update. SW called [facility] and left message for account executive agribusiness Ngoc to determine who her visit when yesterday and if they will be able to accept pt back at discharge. Pt is involuntary, paperwork in the chart. Psychiatry is following. SW will continue to follow. Assessment:Pt who is from [facility] Plan:Pt is an involuntary pt, anticipate pt to discharge back to [facility] at discharge. SIMONA has left message for account executive agribusiness Ngoc to discuss pt. SIMONA will continue to follow. ALLISON Vivas
--- NOTE | 2016-02-28 16:28 | NUR ---
Next Of Kin Available Father : [phone] Sabas Doll
--- NOTE | 2016-02-28 22:05 | PCM.PNMED ---
Subjective Date of Service Feb 28, 2016 Subjective Patient was poorly responsive this morning with a heart rate of 140 demonstrating muscle rigidity and shaking. This resolved over approximately 30 minutes and patient was then responding to some commands but not all. He was not agitated and restraints were removed. Exam Vital Signs Vital Sign - Last Date Time Temp Pulse Resp B/P Pulse Ox O2 Delivery O2 Flow Rate FiO2 02/28/16 19:10 37.1 95 19 147/79 99 Room Air Intake and Output 02/27/16 02/27/16 02/28/16 Cumulative From/Thru 15:00 23:00 07:00 02/26/16 21:45 - 02/28/16 06:14 Intake Total 1363 ml 612 ml 2488 ml Output Total 600 ml 1300 ml Balance 1363 ml 12 ml 1188 ml Intake Oral 750 ml 0 ml 1263 ml IV Total 613 ml 612 ml 1225 ml Output Urine Total 600 ml 1300 ml # Voids 1 1 # Bowel Movements 0 0 Exam General: Patient at the time of my exam was calm and not agitated there was no shaking or muscle rigidity he would occasionally smile appropriately. He would follow some commands and not others. HEENT: Head is atraumatic normocephalic. Eyes: Pupils are equally round and reactive to light and accommodation. Extraocular muscles are intact. Sclera are white anicteric. Subconjunctival mucosa is pink. Ears and nose are unremarkable. Oropharynx: There is no mucosal lesions, there is some white coating on tongue however could be recent medication. There is no obvious thrush, there is no pharyngitis. Neck: Is supple, there are no nodes, or masses or tenderness. Chest: Is clear to auscultation and percussion. There are no rales, rhonchi, wheezes or rubs. Heart: Rate, rhythm is regular. There is no murmur, rub or gallop. Abdomen: Good bowel sounds are present. Abdomen is soft, nontender, no organomegaly or masses were appreciated. Extremities: Are symmetrical and well perfused. There is no edema, there is no cellulitis, no rash. Neurologic: Neurologic exam is difficult due to lack of participation from patient There are no clear focal neurological deficits. Cranial nerves II through XII are intact. There are no sensory or motor deficits observed. Psychiatric: Patients mood is calm and shows no sign of agitation at this time. Genital: Deferred Rectal: Deferred Lab and Diagnostics Result Diagram: 02/28/16 0550 02/28/16 0550 X-Rays, CTs and MRIs CXR concurrently reviewed by myself from 02/[address] head 02/24 concurrently reviewed by myself There is no acute intracranial abnormality. Asymmetry of the ventricular system. The right is smaller than the lateral ventricle than the left in the region of the body and frontal horn. However nicholson -white matter interface is considered normal and no mass effect or edema is seen. So no abnormality is appreciated that would cause the right side to be smaller. On the left side which is somewhat larger one can argue that the body of the caudate nucleus is atrophic at the mid lateral ventricular level. This would be an old finding and nothing acute. No other cause for the enlargement of the left lateral ventricle is seen. Therefore I did not see any evidence for any acute disease intracranially and suspect that the ventricular asymmetry is within normal limits. old CT scans to compare would be useful. Assessment & Plan 20-year-old male w/ autism, bipolar disorder, and schizophrenia presents to the ED via EMS from [facility] with hypertension and behavioral status changes onset today. # Fever present on admission, HTN, behavioral changes, present on admission, likely secondary to neuroleptic malignant syndrome due to increased dose of antipsychotics, CK elevated, still exhibiting periods of rigidity. There is no fever today and white blood cell count is normal today suggesting that there is no evidence of infection. -Patient was started bromocriptine 2.5mg tid, ativan 1-2mg prn . Will continue. -Patient was started IVF 100cc/hr, daily CK, Cr -A shunt will need frequent neurocheck, seizure precaution, -Monitor vitals closely if fever continues, remain altered, consider LP, to investigate for meningitis/encephalitis. -If unable to take PO bromocriptine, may need to start IV dantrolene. # Autism, bipolar disorder, and schizophrenia -We have stopped all of psychiatric meds, appreciate psychiatry consult by . Diet: NPO for now, advance when appropriate, when mental status improves. . Disposition: Patient to be transferred to a swing bed where he can be placed at [facility] status and moved to CCU status as needed., then inpatient psychiatry back to [facility], Of note, reportedly pt is homeless, appreciate SW input. Pain Evaluation: Adequate Pain Control GI Prophylaxis: Not indicated VTE Prophylaxis: Sub-Q Heparin (Unfractionated) Resuscitation Status: CPR: Attempt Resuscitation JabariRainer MD Feb 28, 2016 22:05
[2016-02-29] VITALS (9 sets, daily range): BP systolic 127–147; BP diastolic 59–88; PULSE 82–124; RESP 15–24; O2SAT 98–99
[2016-02-29] MEDS: Heparin 5,000 Unit/mL Inj SUBQ SCH ×3 (02:06→18:04)
[2016-02-29] MEDS: 0.9% Sodium Chloride 1,000 ML IV SCH ×2 (05:51→12:05)
--- NOTE | 2016-02-29 07:30 | NUR ---
Behavior Pt is nonverbal but he will say few words in soft voice. Pt appears slightly anxious at times. Pt throws morena bear on the floor few times. Video game offered to pt but he throw the controller away. Medicated with Ativan without significant changes. VSS. Sitter at the bedside for safety. No overt complications noted.
[2016-02-29 07:41] LABS: BASOPHILS % (AUTO) 0.1 % (0-3); EOSINOPHILS % (AUTO) 6.6 % (0-5); MONOCYTES % (AUTO) 6.1 % (4-12); Mean Corpuscular Hemoglobin 29.5 pg (27.0-35.0); Mean Corpuscular Volume 86.9 fL (81-100); NEUTROPHILS % (AUTO) 60.2 % (40-74); Platelet Count 268 bil/L (150-400)
--- NOTE | 2016-02-29 12:02 | NUR ---
Social Work: Continued Discharge Planning D: Pt discussed in morning rounds. Pt transferred to [facility] yesterday. Per MD, pt may be ready for discharge back to [facility] in several days. Case Management to follow up with [facility]. t/c to [facility]. HATCH TENDER spoke with the executive advisor, Ngoc. She came to see the pt on 02/26 and pt was not doing well. She would like to see him again prior to d/c. She will come by today with anticipate for possible discharge in several days. She is requesting updated clinicals to provide to her medical specialist. [facility] faxed these to [phone]. Pt will likely require S transport based on current behaviors and mentation. [facility] states pt has never transported in a private vehicle and they do not trust the pt in this level of transportation. A: Pt who is currently on a 90 day involuntary hold at [facility]. P: Anticipate pt to return back to [facility] pending clinical course and bedside assessment; HATCH TENDER to continue to follow. ALLISON Titus
--- NOTE | 2016-02-29 12:06 | NUR ---
Faxed clinicals to [facility] per ASSISTANT PROFESSOR OF SOCIOLOGY [phone]
--- NOTE | 2016-02-29 16:00 | PCM.PNMED ---
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 The patient is alert today but minimally responsive to verbal engagement. Does not verbalize. Seems to attempt to gesture in response to verbal stimulation. But no clear meaning. He is beginning to take oral intake with minimal assistance. He is not ambulatory Exam Vital Signs Vital Sign - Last Date Time Temp Pulse Resp B/P Pulse Ox O2 Delivery O2 Flow Rate FiO2 02/29/16 12:08 36.9 98 22 138/76 Room Air 02/29/16 07:55 99 Intake and Output 02/28/16 02/28/16 02/29/16 Cumulative From/Thru 15:00 23:00 07:00 02/26/16 21:45 - 02/29/16 05:57 Intake Total 1615 ml 2718 ml 6821 ml Output Total 400 ml 450 ml 2150 ml Balance 1215 ml 2268 ml 4671 ml Intake Oral 320 ml 1600 ml 3183 ml IV Total 1295 ml 1118 ml 3638 ml Output Urine Total 400 ml 450 ml 2150 ml # Voids 4 5 # Bowel Movements 0 0 0 Exam General: Cognitively impaired otherwise healthy-appearing young man in no acute distress HEENT: sclerae anicteric, oral mucosa moist Neck: no JVD Chest: clear to auscultation Cardiac: S1S2, no murmur Abdomen: non-tender Extremities: No edema Neuro: Alert and gestures in response to voice, disconjugate gaze, motor strength seems normal, coordination, akathisia or choreiform tics IVs and Medications Medications Reviewed: Medications were reviewed in detail Lab and Diagnostics Result Diagram: 02/29/16 0735 02/29/16 0735 X-Rays, CTs and MRIs PROCEDURE: CT BRAIN WITHOUT CONTRAST ([id number]) IMPRESSION: There is no acute intracranial abnormality. Dictated by: Haroldo Pro M.D. on 02/25/2016 at 12:30 PROCEDURE: X-RAY CHEST ONE VIEW, PORTABLE ([id number]) IMPRESSION: Normal AP supine chest. Dictated by: Haroldo Pro M.D. on 02/25/2016 at 11:11 . Assessment & Plan 20-year-old male w/ autism, bipolar disorder, and schizophrenia presents to the ED via EMS from [facility] with hypertension and behavioral status changes onset today. # Possible neuroleptic malignant syndrome. Fever maximum 38.2, subsequently afebrile for 2 days. Upon admission this was associated with borderline hypertension 154/89, subsequently resolved to systolic blood pressure 129-147. Upon admission associated with variable heart rate, maximum 123. His heart rate has remained highly variable since, and seems related to agitation or chronic dysautonomia. CPK was minimally elevated with maximum 611 on day 2 of admission. There was no motor rigidity noted on admission. He received bromocriptine. - Okay to taper off bromocriptine - Monitor clinically # Autism, bipolar disorder, and schizophrenia. Stopped all of psychiatric meds upon admission. Psychiatry consult by . - The patient is medically cleared for disposition per psychiatric consult - To resume chronic psych meds per psychiatric outreach consultant - When necessary lorazepam at present - We will continue condom catheter and assistance with ADLs at present Diet: Advance diet as tolerated Disposition: Medically cleared for psychiatric disposition. Okay to discharge from [facility]. Anticipate discharge from hospital when psychiatric disposition is determined. GI Prophylaxis: Not indicated VTE Prophylaxis: Sub-Q Heparin (Unfractionated) Resuscitation Status: CPR: Attempt Resuscitation Time spent 30 minutes Fritz Chung MD Feb 29, 2016 16:00
--- NOTE | 2016-02-29 19:13 | NUR ---
Activity/Diet/Nuero Patient awake and alert this shift, nonverbal except for occasional word. Condom cath discontinued. Patient oob with 1-2 person assist, r/t shaking and weakness in BUE and BLE but amb well once standing. Patient voiding per bathroom. Patient drinking liquids well and wilton diet fair. 1:1 sitter at bedside for safety. See vitals, tele SR-ST 90-100's at rest and 120-130's with activity. Will cont poc.
[2016-03-01] VITALS (9 sets, daily range): BP systolic 119–168; BP diastolic 66–90; PULSE 75–122; RESP 15–26; O2SAT 96–99
[2016-03-01] MEDS: Heparin 5,000 Unit/mL Inj SUBQ SCH ×3 (01:54→16:33)
--- NOTE | 2016-03-01 07:36 | NUR ---
Restraints Pt had an outburst of violent behavior and a code lyn was called. Pt had to have 4 point locked restraints applied. Pt was given 2mg ativan x2 and this can be given Q2H PRN for agitation. The ativan helped decrease the pt's agitation and the pt was able to get some sleep. Pt was placed in 4 point soft restraints since the pt was not fighting against the restraints anymore and was being compliant. Pt still remains in the 4 point restraints.
--- NOTE | 2016-03-01 13:31 | PCM.PNPSY ---
Subjective Date of Service Mar 01, 2016 Subjective I spent 30 minutes both reviewing his treatment plan and assessing the patient. Tyler remains essentially nonverbal and he had a significant setback over the past 24 hours. Today he was not able to respond my questions and was in 4- point restraints, with severe disorientation and confusion. Over the past several days he had been acknowledging by signing thumbs up when he agreed with my questions. Today he could not respond in any coherent manner. He tended to rise constantly trying to get out of the restraints. The Staff reports that he is combative last night and they had to put him back into soft restraints. He has been drinking but is having difficulty following staff directions Patient was not able to identify why he was here or the nature of his treatments. He did not appear to be responding to internal stimuli. He had significant tension throughout his body and was posturing in all odd positions throughout the interview. Mental Status Exam Vital Signs Vital Signs Date Time Temp Pulse Resp B/P Pulse Ox O2 Delivery O2 Flow Rate FiO2 03/01/16 11:18 36.6 26 160/90 99 Room Air 03/01/16 08:46 36.7 115 20 141/76 99 Room Air 03/01/16 08:00 113 Appearance: Disheveled Attitude: Other (disorganized confused) Behavior: Stereotypic movements, Distractible Affect: Restricted, Blunted, Flat Mood: Other (patient unable to relate) Thought Process/Associations: Other (poverty of thought) Speech Production: Muter Speech Rate: Lags/Latency Speech Articulation: Slurred Consciousness: Other (agitated restless) Orientation: Unable to assess Estimate Intellectual Function: Below Average Basis for IQ estimate: Other (Specify) (interview with previous staff and caregivers) Insight: None Judgement: Poor Result Diagram: 02/29/16 0735 03/01/16 0436 Mental Health Plan The patient is a 20-year-old white male, who appears to have significant developmental delay. He is a poor historian and it was very difficult to pinpoint what might be going on for the patient at this time. He certainly has all the features that qualify for a diagnosis of neuroleptic malignant syndrome including rigidity, autonomic instability, mental status changes, marked increase in creatine kinase and recent aggressive outbursts. It appears the [facility] staff was attempting to differentiate whether the client had autism or psychosis. It appears that the combination of multiple neuroleptics, Adderall and lithium provoked a neuroleptic malignant syndrome. Client is reportedly homeless living out of a car with his mother who was recently detained herself to [place]. Tyler had an initial positive response to treatment but is now not sleeping, agitated And confused. He continues to be in a delirious condition. After reviewing the case with caregivers from his previous hospitalizations it sounds like he is At 30-40% of his normal baseline He continues to have Relative high levels of blood pressure, pulse and muscle rigidity. He continues to have difficulty with sleep wake cycle. [place] AXIS I 1. Psychosis unspecified. 2. Suspect autism spectrum disorder. 3. Rule out bipolar mood disorder. 4. Rule out schizophrenia. 5. Rule out iatrogenic induced psychosis. AXIS II Defer. AXIS III Neuroleptics malignant syndrome. Delirium. AXIS IV Severe. AXIS V Current global assessment of functioning equal to 25 Medications Treatments Patient is being provided with a high degree of safety through the structure and active adult engagement. We will focus on developing improved coping skills and identifying stressors that may have led to current episode. We will attempt to: Provide safety through structure and active adult engagement (nursing staff and sitter's) Provide low-stimulation environment Obtain collateral data to assist in treatment planning Assess degree of lability of affect and impulse control Establish a consistent sleep pattern Provide a Medication regimen effective in stabilization of mood and/or thought process Tolerates medication without side effects Evaluate iatrogenic drug use as an etiology Patient's prior psychiatric medications are currently being held, I recommend regularly scheduled Valium At 5 mg twice a day and 10 mg at bedtime Patient will likely need an additional 72 hours of medical unit care. Patient to be transferred back to tell a care EMT in [place] when medically stable. John Hsu MD Mar 01, 2016 13:31
--- NOTE | 2016-03-01 16:55 | PCM.PNMED ---
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 The patient is alert today responsive to verbal engagement. He is beginning to take oral intake with minimal assistance. He is not ambulatory. Requiring restraints to avoid interference with needed medical care. In discussion with Forrest from [facility], the patient seems to be at significantly lower level of functioning than his baseline, which includes ambulating, self- feeding and mostly normal toileting. Exam Vital Signs Vital Sign - Last Date Time Temp Pulse Resp B/P Pulse Ox O2 Delivery O2 Flow Rate FiO2 03/01/16 15:45 36.8 18 122/66 99 Room Air 03/01/16 08:46 115 Intake and Output 02/29/16 02/29/16 03/01/16 Cumulative From/Thru 15:00 23:00 07:00 02/26/16 21:45 - 03/01/16 07:00 Intake Total 2072 ml 400 ml 9293 ml Output Total 2150 ml Balance 2072 ml 400 ml 7143 ml Intake Oral 1472 ml 400 ml 5055 ml IV Total 600 ml 4238 ml Output Urine Total 2150 ml # Voids 3 3 11 # Bowel Movements 0 0 0 Exam General: Cognitively impaired otherwise healthy-appearing young man in no acute distress HEENT: sclerae anicteric, oral mucosa moist Neck: no JVD Chest: clear to auscultation Cardiac: S1S2, no murmur Abdomen: non-tender Extremities: No edema Neuro: Verbalizes in response to verbal stem, motor strength seems normal, slight twitchiness but no myoclonic jerking, no significant rigidity IVs and Medications Medications Reviewed: Medications were reviewed in detail Lab and Diagnostics Result Diagram: 02/29/16 0735 03/01/16 0436 X-Rays, CTs and MRIs PROCEDURE: CT BRAIN WITHOUT CONTRAST ([id number]) IMPRESSION: There is no acute intracranial abnormality. Dictated by: Haroldo Pro M.D. on 02/25/2016 at 12:30 PROCEDURE: X-RAY CHEST ONE VIEW, PORTABLE ([id number]) IMPRESSION: Normal AP supine chest. Dictated by: Haroldo Pro M.D. on 02/25/2016 at 11:11 . Assessment & Plan 20-year-old male w/ autism, bipolar disorder, and schizophrenia presents to the ED [facility] with hypertension and behavioral status changes onset today. # Possible neuroleptic malignant syndrome. Fever maximum 38.2, subsequently afebrile for 2 days. Upon admission this was associated with borderline hypertension 154/89, subsequently resolved to systolic blood pressure 129-147. Upon admission associated with variable heart rate, maximum 123. His heart rate has remained highly variable since, and seems related to agitation or chronic dysautonomia. CPK was minimally elevated with maximum 611 on day 2 of admission. There was no motor rigidity noted on admission. He received bromocriptine, which was discontinued on 02/28. - Scheduled diazepam 5, 5, 10 as per psychiatry recommendations - Monitor clinically # Autism, bipolar disorder, and schizophrenia. Stopped all of psychiatric meds upon admission. Psychiatry consult by . - The patient continues to be behaviorally decompensated despite progress and recovery from toxic encephalopathy and NMS - We will use low-dose diazepam but no other psychiatric medications - Supportive psychological interactions with expectation of further improvement over one to 2 days prior to discharge Diet: Advance diet as tolerated Disposition: Anticipate discharge from hospital on 03/04. GI Prophylaxis: Not indicated VTE Prophylaxis: Sub-Q Heparin (Unfractionated) Resuscitation Status: CPR: Attempt Resuscitation Time spent 35 minutes spent in patient assessment and care coordination including review of data with consultants. Fritz Chung MD Mar 01, 2016 16:55
--- NOTE | 2016-03-01 18:04 | NUR ---
Valium Went in at 1800 to do restraint check and give 5mg Valium that was ordered. PT refused med, wouldn't open his eyes or mouth and was sleeping, arousable but sleeping.
[2016-03-02] VITALS (9 sets, daily range): BP systolic 118–151; BP diastolic 72–89; PULSE 78–113; RESP 16–18; O2SAT 94–99
--- NOTE | 2016-03-02 07:48 | NUR ---
Agitation/Rest Pt was agitated and struggling against the restraints at the beginning of the shift. Pt received HS 10mg diazepam crushed in chocolate pudding and then received 2mg ativan at 2245 and then another 2mg ativan at 0045. The 2mg of Ativan given at 0045 did not save in the EMAR. Pt did not rest until approximately 0400 and is still sleeping at this time.
--- NOTE | 2016-03-02 11:42 | NUR ---
Restraints Removed restraints at 1100 to see how things will go per Dr. Chung. It has been 45 min and so far the pt is acting appropriately and following commands. Will continue to monitor. Addendum: 03/02/16 at 1615 by NIKOLAY RICHARDSON RN End of day and restraints have not been needed. PT up SBA to bathroom to void and ambulating in the room.
--- NOTE | 2016-03-02 12:40 | PCM.PNPSY ---
Subjective Date of Service Mar 02, 2016 Subjective I spent 30 minutes both reviewing his treatment plan with internal medicine and his nursing staff and assessing the patient. Tyler remains nonverbal but he is significantly improved in the ability to work with the staff and over the past 12 hours as not required 4. soft restraints. Today he was not able to respond my questions but appeared less disoriented. He has been taking by mouth hydration and is no longer having difficulty following staff directions Patient was not able to identify why he was here or the nature of his treatments. He did not appear to be responding to internal stimuli. He had significant less tension throughout his body and was no longer posturing in all odd positions. Current Medications Current Medications Diazepam 5 mg 08,16 PO Last administered on 03/02/16 09:13; Admin Dose 5 MG; Start 03/01/16 at 16:50 Diazepam 10 mg HS PO Last administered on 03/01/16 20:02; Admin Dose 10 MG; Start 03/01/16 at 21:00 Mental Status Exam Vital Signs Vital Signs Date Time Temp Pulse Resp B/P Pulse Ox O2 Delivery O2 Flow Rate FiO2 03/02/16 10:08 100 03/02/16 09:19 37.0 113 16 145/76 94 Room Air 03/02/16 05:05 82 Appearance: Disheveled Attitude: Other (disorganized confused) Behavior: Stereotypic movements, Distractible Affect: Restricted, Blunted, Flat Mood: Other (patient unable to relate) Thought Process/Associations: Other (poverty of thought) Speech Production: Muter Speech Rate: Lags/Latency Speech Articulation: Slurred Consciousness: Other (agitated restless) Orientation: Unable to assess Estimate Intellectual Function: Below Average Basis for IQ estimate: Other (Specify) (interview with previous staff and caregivers) Insight: None Judgement: Poor Result Diagram: 02/29/16 0735 03/01/16 0436 Mental Health Plan The patient is a 20-year-old white male, who appears to have significant developmental delay. He is a poor historian and it was very difficult to pinpoint what might be going on for the patient at this time. He certainly has all the features that qualify for a diagnosis of neuroleptic malignant syndrome including rigidity, autonomic instability, mental status changes, marked increase in creatine kinase and recent aggressive outbursts. It appears the [facility] staff was attempting to differentiate whether the client had autism or psychosis. It appears that the combination of multiple neuroleptics, Adderall and lithium provoked a neuroleptic malignant syndrome. Client is reportedly homeless living out of a car with his mother who was recently detained herself to [place]. Tyler had an initial positive response to treatment but is now not sleeping, agitated And confused. He continues to be in a delirious condition. After reviewing the case with caregivers from his previous hospitalizations it sounds like he is At 40% of his normal baseline Tyler's had a marked improvement in autonomic stability and a marked decrease in muscle rigidity. [place] AXIS I 1. Psychosis unspecified. 2. Suspect autism spectrum disorder. 3. Rule out bipolar mood disorder. 4. Rule out schizophrenia. 5. Rule out iatrogenic induced psychosis. AXIS II Defer. AXIS III Neuroleptics malignant syndrome. Delirium. AXIS IV Severe. AXIS V Current global assessment of functioning equal to 30 Medications Treatments Patient is being provided with a high degree of safety through the structure and active adult engagement. We will focus on developing improved coping skills and identifying stressors that may have led to current episode. We will attempt to: Provide safety through structure and active adult engagement (nursing staff and sitter's) Provide low-stimulation environment Obtain collateral data to assist in treatment planning Assess degree of lability of affect and impulse control Establish a consistent sleep pattern Provide a Medication regimen effective in stabilization of mood and/or thought process Tolerates medication without side effects Evaluate iatrogenic drug use as an etiology Patient's prior psychiatric medications are currently being held, I recommend regularly scheduled Valium At 5 mg twice a day and 10 mg at bedtime Patient will likely need an additional 72 hours of medical unit care. Patient to be transferred back to [place] [facility] in [place] when medically stable. John Hsu MD Mar 02, 2016 12:40
--- NOTE | 2016-03-02 17:26 | PCM.PNMED ---
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 The patient is alert today responsive to verbal engagement. He is beginning to take oral intake with minimal assistance. Requiring some restraints to avoid interference with needed medical care. His baseline level of function includes ambulating, self-feeding with some assistance, and mostly normal toileting. Exam Vital Signs Vital Sign - Last Date Time Temp Pulse Resp B/P Pulse Ox O2 Delivery O2 Flow Rate FiO2 03/02/16 16:35 36.9 101 18 126/74 99 Room Air Intake and Output 03/01/16 03/01/16 03/02/16 Cumulative From/Thru 15:00 23:00 07:00 02/26/16 21:45 - 03/02/16 06:33 Intake Total 3200 ml 120 ml 09855 ml Output Total 150 ml 2300 ml Balance 3050 ml 120 ml 64375 ml Intake Oral 3200 ml 120 ml 8375 ml IV Total 4238 ml Output Urine Total 150 ml 2300 ml # Voids 5 1 17 # Bowel Movements 2 1 3 Exam General: Cognitively impaired otherwise healthy-appearing young man in no acute distress HEENT: sclerae anicteric, oral mucosa moist Chest: clear to auscultation Cardiac: S1S2, no murmur Abdomen: non-tender Extremities: No edema Neuro: Appropriately interactive with limited verbal output, motor strength seems normal, IVs and Medications Medications Reviewed: Medications were reviewed in detail Lab and Diagnostics Result Diagram: 02/29/16 0735 03/01/16 0436 X-Rays, CTs and MRIs PROCEDURE: CT BRAIN WITHOUT CONTRAST ([id number]) IMPRESSION: There is no acute intracranial abnormality. Dictated by: Haroldo Pro M.D. on 02/25/2016 at 12:30 PROCEDURE: X-RAY CHEST ONE VIEW, PORTABLE ([id number]) IMPRESSION: Normal AP supine chest. Dictated by: Haroldo Pro M.D. on 02/25/2016 at 11:11 . Assessment & Plan 20-year-old male w/ autism, bipolar disorder, and schizophrenia presents to the ED via EMS from [facility] with hypertension and behavioral status changes onset today. # Possible neuroleptic malignant syndrome. Fever maximum 38.2, subsequently afebrile for 2 days. Upon admission this was associated with borderline hypertension 154/89, subsequently resolved to systolic blood pressure 129-147. Upon admission associated with variable heart rate, maximum 123. His heart rate has remained highly variable since, and seems related to agitation or chronic dysautonomia. CPK was minimally elevated with maximum 611 on day 2 of admission. There was no motor rigidity noted on admission. He received bromocriptine, which was discontinued on 02/28. - Scheduled diazepam 5, 5, 10 as per psychiatry recommendations - Monitor clinically # Autism, bipolar disorder, and schizophrenia. Stopped all of psychiatric meds upon admission. Psychiatry consult by . - The patient continues to be behaviorally decompensated despite progress and recovery from toxic encephalopathy and NMS - We will use low-dose diazepam but no other psychiatric medications - Supportive psychological interactions with expectation of further improvement over one to 2 days prior to discharge Diet: Advance diet as tolerated Disposition: Anticipate discharge from hospital on 03/04. GI Prophylaxis: Not indicated VTE Prophylaxis: Sub-Q Heparin (Unfractionated) Resuscitation Status: CPR: Attempt Resuscitation Time spent 20 minutes Fritz Chung MD Mar 02, 2016 17:26
[2016-03-03] VITALS (10 sets, daily range): BP systolic 114–140; BP diastolic 67–79; PULSE 60–104; RESP 18–20; O2SAT 96–100
--- NOTE | 2016-03-03 03:42 | NUR ---
Agitation Pt nonverbal to primary RN, does not follow commands nor making eye contact when talked to, increasingly became agitated manifested by continuous banging on the side rails, tensed facial expressions, pulling on wires and whatever he can grab on, getting oob unassisted, security called in for assistance, reapplied bilateral soft wrist and ankle restraints in bed, sitter at bedside, given routine vallium 10mg po at hs, & ativan 2mg IV x 2 prn. Pt fells asleep around 0300.
--- NOTE | 2016-03-03 15:27 | NUR ---
Social work Continued discharge Planning Data & Assessment: EMR Reviewed. Patient was discussed in daily rounds and patient's estimated discharge date is 03/04/15. Patient will return to [facility] where he is on a 90-day bed hold. [facility] [phone], evaluated the patient an stated that the patient should be able to return on 03/04/15. SW will continue to follow patient. Plan Patient is likely to discharge to [facility] on 03/04/15. will call [facility] on 03/04/16 to confirm. SW will continue to follow. Destiny Wong LMSW, SAURABH
--- NOTE | 2016-03-03 15:36 | PCM.PNMED ---
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 The patient is alert today responsive to verbal engagement. Requiring some restraints to avoid interference with needed medical care, sometimes quite agitated. His baseline level of function includes ambulating, self-feeding with some assistance, and mostly normal toileting. Exam Vital Signs Vital Sign - Last Date Time Temp Pulse Resp B/P Pulse Ox O2 Delivery O2 Flow Rate FiO2 03/03/16 10:18 60 03/03/16 08:03 36.9 18 114/67 97 Room Air Intake and Output 03/02/16 03/02/16 03/03/16 Cumulative From/Thru 15:00 23:00 07:00 02/26/16 21:45 - 03/03/16 06:46 Intake Total 936 ml 0 ml 69366 ml Output Total 2300 ml Balance 936 ml 0 ml 84055 ml Intake Oral 936 ml 0 ml 9311 ml IV Total 4238 ml Output Urine Total 2300 ml # Voids 3 3 23 # Bowel Movements 3 Exam General: Cognitively impaired twisting against restraints but verbally responsive in no acute distress HEENT: sclerae anicteric, oral mucosa moist Chest: clear to auscultation Cardiac: S1S2, regular Abdomen: non-tender Extremities: No edema Neuro: limited verbal output, motor strength seems normal, IVs and Medications Medications Reviewed: Medications were reviewed in detail Lab and Diagnostics Result Diagram: 02/29/16 0735 03/01/16 0436 X-Rays, CTs and MRIs PROCEDURE: CT BRAIN WITHOUT CONTRAST ([id number]) IMPRESSION: There is no acute intracranial abnormality. Dictated by: Haroldo Pro M.D. on 02/25/2016 at 12:30 PROCEDURE: X-RAY CHEST ONE VIEW, PORTABLE ([id number]) IMPRESSION: Normal AP supine chest. Dictated by: Haroldo Pro M.D. on 02/25/2016 at 11:11 . Assessment & Plan 20-year-old male w/ autism, bipolar disorder, and schizophrenia presents to the ED via EMS from [facility] with hypertension and behavioral status changes onset today. # Possible neuroleptic malignant syndrome. Fever maximum 38.2, subsequently afebrile for 2 days. Upon admission this was associated with borderline hypertension 154/89, subsequently resolved to systolic blood pressure 129-147. Upon admission associated with variable heart rate, maximum 123. His heart rate has remained highly variable since, and seems related to agitation or chronic dysautonomia. CPK was minimally elevated with maximum 611 on day 2 of admission. There was no motor rigidity noted on admission. He received bromocriptine, which was discontinued on 02/28. - Scheduled diazepam 5, 5, 10 as per psychiatry recommendations - Monitor clinically # Autism, bipolar disorder, and schizophrenia. Stopped all of psychiatric meds upon admission. Psychiatry consult by . - The patient continues to be behaviorally decompensated despite progress and recovery from toxic encephalopathy and NMS - We will use low-dose diazepam with when necessary lorazepam for breakthrough agitation, but no other psychiatric medications - Supportive psychological interactions with expectation of further improvement over one to 2 days prior to discharge Diet: Advance diet as tolerated Disposition: Anticipate discharge from hospital on 03/04. GI Prophylaxis: Not indicated VTE Prophylaxis: Sub-Q Heparin (Unfractionated) Resuscitation Status: CPR: Attempt Resuscitation Time spent 20 minutes Fritz Chung MD Mar 03, 2016 15:36
--- NOTE | 2016-03-03 18:20 | NUR ---
Mentation/Agitation/Restraints Patient alert to self, and would typically turn and acknowledge RN when his name was used. Responded mostly with yes and no answers, and followed directions the majority of the time. Patient still had multiple episodes of severe agitation, rocking the bed back and forth with facing grimacing and clenching -- would administer 2mg IV Ativan (Q2) -- mild effect on agitation. Bilateral leg restraints removed with lunch, tolerated okay and then progressed to one wrist. Patient suddenly became very agitated and grabbed and computer mouse, threw lunch tray, etc. 4 point restraints replaced. MD aware. Tolerating PO intake well, 2 BMs, brief on -- patient incontinent.
--- NOTE | 2016-03-04 02:00 | NUR ---
neuro pt alert, melanie, restless but improved according to staff that had pt last night, soft non violent restaints on pt, orders on chart, sitter at bedside t/o the night, pt took po valium at hs -no choking noted, ativan given q2-q2.5hrs--effective in keeping pt less agitated, pt still awake post ativan doses, sitter states pt sleeps for approximately 10 minutes at a time and then is awake again, pt responds to his name and looks at staff when called by his name, pt answers with yes or no to questions, pt did say he was "fine" when asked how he was doing, melanie, impulsive, restless, pt incontinent of stool and urine, brief on, no c/o n/v, po intake [place] well, tele- sr/st, bp stable, afebrile, no c/o cp, no c/o or s/sx of sob, ls-clear, resp rate teens to 20, right anticubital saline lock leaking-discontinued, right hand saline lock placed-wnl, see assessment charting, continue monitoring with sitter at bedside also, Addendum: 03/04/16 at 0259 by ANNIA JOSEPH RN also pt able to help turn in bed with nursing staff instruction, pt incontinent per brief but able to lift his buttocks to help get changed,
[2016-03-04 03:13] VITALS: BP 122/72; PULSE 83; RESP 20; O2SAT 99
[2016-03-04 03:26] VITALS: PULSE 86
--- NOTE | 2016-03-04 05:36 | NUR ---
transfer of care at 0445 report given to next rn,
[2016-03-04 08:30] VITALS: BP 139/79; PULSE 105; RESP 18; O2SAT 99
[2016-03-04] MEDS ORDERED: DIAZ5TAB PO ×2 (08:48)
--- NOTE | 2016-03-04 08:50 | PCM.DIMED ---
Discharge Instructions Date of Service Mar 04, 2016 Dates of Hospitalization Feb 26, 2016 at 19:49 Discharge Diagnosis Discharge Diagnosis Neuroleptic malignant syndrome; toxic encephalopathy; organic brain disorder Medication Instructions Antipsychotic medications have been discontinued. Psychiatry regional sales consultant feels there are no indications for these medicines. Previous dose of clonazepam has been replaced by a 3 times daily schedule of diazepam. Other medications remain unchanged. Diet No restrictions Activity No restrictions Patient Instructions Follow-up plan Follow-up with primary care and mental health providers as previously scheduled. Fritz Chung MD Mar 04, 2016 08:50
--- NOTE | 2016-03-04 08:55 | PCM.DC.MED ---
Discharge Summary Date of Service Mar 04, 2016 Dates of Hospitalization Date of Hospital Admission Feb 26, 2016 at 19:49 Date of Discharge: Mar 04, 2016 Providers: Admitting Physician: Deejay Pruitt MD Primary Care Physician: Sulma Ambriz MD Attending Physician: Deejay Pruitt MD Diagnosis at Time of Discharge Diagnosis at Time of Discharge Neuroleptic malignant syndrome; toxic encephalopathy; organic brain disorder Consultations Psychiatry The patient is a 20-year-old white male, who appears to have significant developmental delay. He is a poor historian and it was very difficult to pinpoint what might be going on for the patient at this time. He certainly has all the features that qualify for a diagnosis of neuroleptic malignant syndrome including rigidity, autonomic instability, mental status changes, marked increase in creatine kinase and recent aggressive outbursts. It appears the [facility] staff was attempting to differentiate whether the client had autism or psychosis. It appears that the combination of multiple neuroleptics, Adderall and lithium provoked a neuroleptic malignant syndrome. Client is reportedly homeless living out of a car with his mother who was recently detained herself to [place]. Tyler had an initial positive response to treatment but is now not sleeping, agitated And confused. He continues to be in a delirious condition. After reviewing the case with caregivers from his previous hospitalizations it sounds like he is At 40% of his normal baseline Tyler's had a marked improvement in autonomic stability and a marked decrease in muscle rigidity. [place] AXIS I 1. Psychosis unspecified. 2. Suspect autism spectrum disorder. 3. Rule out bipolar mood disorder. 4. Rule out schizophrenia. 5. Rule out iatrogenic induced psychosis. AXIS II Defer. AXIS III Neuroleptics malignant syndrome. Delirium. AXIS IV Severe. AXIS V Current global assessment of functioning equal to 30 Medications Treatments Patient is being provided with a high degree of safety through the structure and active adult engagement. We will focus on developing improved coping skills and identifying stressors that may have led to current episode. We will attempt to: Provide safety through structure and active adult engagement (nursing staff and sitter's) Provide low-stimulation environment Obtain collateral data to assist in treatment planning Assess degree of lability of affect and impulse control Establish a consistent sleep pattern Provide a Medication regimen effective in stabilization of mood and/or thought process Tolerates medication without side effects Evaluate iatrogenic drug use as an etiology Patient's prior psychiatric medications are currently being held, I recommend regularly scheduled Valium At 5 mg twice a day and 10 mg at bedtime John Hsu MD Mar 02, 2016 12:40 Procedures XRay, CTs & MRIs PROCEDURE: CT BRAIN WITHOUT CONTRAST ([id number]) IMPRESSION: There is no acute intracranial abnormality. Dictated by: Haroldo Pro M.D. on 02/25/2016 at 12:30 PROCEDURE: X-RAY CHEST ONE VIEW, PORTABLE ([id number]) IMPRESSION: Normal AP supine chest. Dictated by: Haroldo Pro M.D. on 02/25/2016 at 11:11 . Brief History History of Present Illness (per admission note): A 20 year old male with a history of autism, bipolar disorder, and schizophrenia presents to the ED via EMS from [facility] with hypertension and behavioral status changes onset today. This morning his caretakers documented an episode of violent shaking with a BP of 200/120 and a heart rate of 120. His vital signs had returned to normal when the medics arrived. His caretakers deny fever. The patient's Geodon dosage was recently increased. He was in the ED yesterday for altered mental status and was discharged after a full work-up. Hospital Course 20-year-old male w/ autism, bipolar disorder, and schizophrenia presents to the ED via EMS from [facility] with hypertension and behavioral status changes onset today. # Possible neuroleptic malignant syndrome. Fever maximum 38.2, subsequently afebrile for 2 days. He was reported to have increased muscle tone. Upon admission this was associated with borderline hypertension 154/89, subsequently resolved to systolic blood pressure 129-147. Upon admission associated with variable heart rate, maximum 123. His heart rate has remained highly variable since, and seems related to agitation or chronic dysautonomia. CPK was minimally elevated with maximum 611 on day 2 of admission. There was no motor rigidity noted on admission. He received bromocriptine, which was discontinued on 02/28. - Scheduled diazepam 5, 5, 10 as per psychiatry recommendations - Monitor clinically # Autism, bipolar disorder, and schizophrenia. Stopped all of psychiatric meds upon admission. Psychiatry consult by . - The patient continues to be behaviorally decompensated despite progress and recovery from toxic encephalopathy and NMS - We will use low-dose diazepam with when necessary lorazepam for breakthrough agitation, but no other psychiatric medications - Supportive psychological interactions with expectation of further improvement over one to 2 days prior to discharge Exam Vital Signs (Last) Date Time Temp Pulse Resp B/P Pulse Ox O2 Delivery O2 Flow Rate FiO2 03/04/16 03:26 86 03/04/16 03:13 36.4 20 122/72 99 Room Air Exam General: Cognitively impaired, poking and pressing against objects in bed, not significantly agitated HEENT: sclerae anicteric, oral mucosa moist Chest: clear to auscultation Cardiac: S1S2, regular Abdomen: non-tender Extremities: No edema Neuro: limited verbal output, motor strength seems normal, Test 02/26/16 14:00 02/27/16 05:50 02/28/16 05:50 02/29/16 07:35 Hold Purple Top Tube Received (Received) Hold Blue Top Tube Received (Received) Hold Red Top Tube Received (Received) Hold [place] Top Tube Received (Received) [place] Level 0.4mEq/L (0.5-1.5) Phosphorus Level 3.7mg/dL (2.5-4.9) Magnesium Level 2.0mg/dL (1.6-2.6) Total Bilirubin 0.6mg/dL (0.0-1.2) Aspartate Amino Transf (AST/SGOT) 24U/L (0-50) Alanine Aminotransferase (ALT/SGPT) 25U/L (0-44) Alkaline Phosphatase 83U/L (25-150) Total Protein 7.0g/dL (6.4-8.4) Albumin 4.4g/dL (3.4-5.0) White Blood Count 8.7th/mm3 (3.8-10.1) Red Blood Count 4.57mil/mm3 (4.40-5.80) Hemoglobin 13.5g/dL (13.8-17.2) Hematocrit 39.7% (41.0-50.0) Mean Corpuscular Volume 86.9fL (81-100) Mean Corpuscular Hemoglobin 29.5pg (27.0-35.0) Mean Corpuscular Hemoglobin Concent 34.0% (32.0-37.0) Red Cell Distribution Width 13.4% (12.3-15.4) Platelet Count 268bil/L (150-400) Neutrophils (%) (Auto) 60.2% (40-74) Lymphocytes (%) (Auto) 26.9% (14-46) Monocytes (%) (Auto) 6.1% (4-12) Eosinophils (%) (Auto) 6.6% (0-5) Basophils (%) (Auto) 0.1% (0-3) Test 03/01/16 04:36 Sodium Level 141mEq/L (134-144) Potassium Level 3.7mEq/L (3.5-5.2) Chloride Level 102mEq/L (97-108) Carbon Dioxide Level 25mmol/L (18-29) Blood Urea Nitrogen 8mg/dL (6-20) Creatinine 0.60mg/dL (0.76-1.27) Estimat Glomerular Filtration Rate 181mL/min (>59) Glucose Level 92mg/dL (60-99) Calcium Level 9.3mg/dL (8.5-10.1) Total Creatine Kinase 220U/L (21-232) Discharge Medications Discharge Medications ([[place] Oral solu]) 300 MG PO DAILY (Reported) ([[place]ass[place] oral ivon]) 600 MG PO HS (Reported) Diazepam (Valium) 5 Mg Tablet 10 MG PO HS Prescribed by: NELSON OLSON MD Diazepam (Valium) 5 Mg Tablet 5 MG PO Prescribed by: NELSON OLSON MD Guanfacine (Guanfacine) 1 Mg Tablet 1 MG PO BID (Reported) As needed Acetaminophen (Acetaminophen) 325 Mg Tablet 650 MG PO Q4H PRN PRN For Fever ( Reported) Magnesium Hydroxide (Milk of Magnesia) 400 Mg/5 Ml Oral.susp 400 MG PO PRN For Dyspepsia or Heartburn (Reported) Temazepam (Restoril) 15 Mg Capsule 15 MG PO HS PRN PRN For Insomnia (Reported) Additional med instructions Antipsychotic medications have been discontinued. Psychiatry solar sales consultant feels there are no indications for these medicines. Previous dose of clonazepam has been replaced by a 3 times daily schedule of diazepam. Other medications remain unchanged. Followup Plan Disposition: [facility] Follow-up plan Follow-up with primary care and mental health providers as previously scheduled. Discharge Diet: No restrictions Discharge Activity: No restrictions Time spent 25 minutes copies to: Sulma Ambriz MD, Jeffrey W MD Mar 04, 2016 08:55
--- NOTE | 2016-03-04 09:29 | NUR ---
Reviewed patient for BLS transport and when patient is on 90 day hold stretcher is required. Completed the PCS form and acknowledge patient's inability to be aware of surroundings and make sure he himself and others are safe. PCS form signed by HADOOP DEVELOPER lumber sales supervisor, this case was discussed with her. Updated HADOOP DEVELOPER Addendum: 03/04/16 at 1250 by ARI ROBISON CM Arranged BLS transport for 1400 per HADOOP DEVELOPER request. Updated dispatch about patients needs and possible for restraints. Updated HADOOP DEVELOPER
[2016-03-04 11:07] VITALS: PULSE 70
[2016-03-04 12:30] VITALS: BP 128/87; PULSE 98; RESP 16; O2SAT 98
--- NOTE | 2016-03-04 12:43 | NUR ---
Social Work Note: Discharge Data& Assessment: Per pt is medically improved and ready to discharge back to [facility] for continued psychiatric treatment. SIMONA spoke with SIMONA Fried at [facility], Jovani Hinson RN, and Dr. Ngoc Bateman Director at [facility] regarding pt return. SW confirmed that they are able to accept pt back to their facility after 2p.m. today. SIMONA requested BLS transportation to be arranged for 2:00p.m. this afternoon. SW to updated [facility] SW and discharge door operator regarding pt exact transport time for pt after confirmation with [facility]. All updated and agreeable to plan. No other discharge needs identified. Plan: Per pt is medically ready to be transported back to [facility] for continued psychiatric tx at 2:00p.m.. SIMONA confirmed return with Director, discharge door operator and SIMONA at [facility]. SIMONA to updated [facility] SW and discharge door operator regarding pt exact transport time for pt after confirmation with [facility]. All updated and agreeable to plan. No other discharge needs identified. ALLISON Salas
--- NOTE | 2016-03-04 14:14 | NUR ---
P: Alteration in Behavior I: Pt back to his baseline behavior. Valium given po. Ativan 2 mg IV given x2. Pt remains in wrist restraints. Rt hand Saline lock leaking and removed with catheter intact. Incontinent of urine x3. Afebrile. VSS. NSR. Pt awake and occasionally follows commands. Pt restless in bed and at risk for falls so sitter at bedside. Taking diet and fluids with assistance and tolerating it well. E: Stable S: Restraints on for pt safety. Sitter at bedside. EMS here for BLS transfer to [facility]. Report given to EMS and RX and copy of chart with pt.
== END 2016-03-04 14:00 | disposition other institution (70) | DRG 91 ==
LOC: SED 13:19 → MPC 19:49 → INTOOBSV 19:49 → OBSVTOIN 19:49 → PCC 02-28 14:50
PROVIDERS: ADMIT Hospitalist; ATTEND Hospitalist
DX: G21.0 Malignant neuroleptic syndrome (principal); G92 Toxic encephalopathy; F84.0 Autistic disorder; F29 Unspecified psychosis not due to a substance or known physiological condition; T43.595A Adverse effect of other antipsychotics and neuroleptics, initial encounter; F31.9 Bipolar disorder, unspecified; R32 Unspecified urinary incontinence; Z59.0 Homelessness; I10 Essential (primary) hypertension; F09 Unspecified mental disorder due to known physiological condition